=== PATIENT | female | born 1945 ===

== ENCOUNTER 2021-05-25 18:31 | Inpatient (IN) ==
[2021-05-25] MEDS ORDERED: tiZANidine 4 MG TABLET PO PRN (23:21)
[2021-05-25] MEDS ORDERED: Ondansetron ODT 4 MG TAB.RAPDIS SL PRN (23:22)
[2021-05-25] MEDS ORDERED: Acetaminophen 325 MG TABLET PO PRN (23:22)
[2021-05-26] MEDS ORDERED: *HR* Enoxaparin 40 MG/0.4 ML SYRINGE SQ SCH (07:00)
[2021-05-27] MEDS: *HR* OxyCODONE/APAP 5/325 TABLET PO PRN ×2 (01:09→22:00)
[2021-05-27] MEDS: *HR* Enoxaparin 40 MG/0.4 ML SYRINGE SQ SCH (06:44)
[2021-05-28] MEDS: *HR* Enoxaparin 40 MG/0.4 ML SYRINGE SQ SCH (05:00)
[2021-05-28 06:15] LABS: Hematocrit 28.4 % (35.3-44.9); Hemoglobin 9.1 g/dL (11.5-15.4); Mean Corpuscular Hemoglobin 30.6 pg (28.0-33.3); Mean Corpuscular Volume 95.6 fL (83.0-100.0); Mean Platelet Volume 9.7 fL (9.4-12.4); Platelet Count 366 K/mcL (140-400); Red Blood Count 2.97 M/mcL (3.82-4.97); Red Cell Distribution Width 13.7 % (11.5-14.5); White Blood Count 6.3 K/mcL (4.3-11.1)
[2021-05-28 07:00] LABS: BUN/Creatinine Ratio 8 (6-26); Blood Urea Nitrogen 6 mg/dL (8-23); Calcium 7.9 mg/dL (8.6-10.3); Carbon Dioxide 20 mEq/L (23-29); Chloride 103 mEq/L (98-107); Glucose 89 mg/dL (70-105); Osmolality,Calculated 277 (280-300); Potassium 3.9 mEq/L (3.5-5.1); Sodium 135 mEq/L (136-145); eGFR For African Americans > 60 (> 60); eGFR For Non-African Americans > 60 (> 60)
[2021-05-28] MEDS ORDERED: 0.9 % Sodium Chloride 500 ML IV ONE (12:32)
[2021-05-28] MEDS ORDERED: 0.9 % Sodium Chloride 1,000 ML IV SCH (12:45)
[2021-05-28] MEDS: Carbamide Peroxide 150 DROP/15 ML BOTTLE LEFT EAR SCH (21:55)
[2021-05-28] MEDS: Carbamide Peroxide 150 DROP/15 ML BOTTLE RIGHT EAR SCH (21:55)
[2021-05-29 05:32] LABS: Hematocrit 29.3 % (35.3-44.9); Hemoglobin 9.5 g/dL (11.5-15.4); Mean Corpuscular HGB Conc 32.4 g/dL (31.6-35.5); Mean Corpuscular Volume 92.4 fL (83.0-100.0); Mean Platelet Volume 8.9 fL (9.4-12.4); Platelet Count 311 K/mcL (140-400); Red Blood Count 3.17 M/mcL (3.82-4.97); Red Cell Distribution Width 13.9 % (11.5-14.5); White Blood Count 5.6 K/mcL (4.3-11.1)
[2021-05-29 05:47] LABS: Alanine Aminotransferase 12 Units/L (7-52); Albumin 2.9 g/dL (3.5-5.7); Albumin/Globulin Ratio 1.4 (1.1-2.2); Alkaline Phosphatase 59 Units/L (34-104); Aspartate Amino Transferase 17 Units/L (13-39); BUN/Creatinine Ratio 9 (6-26); Bilirubin,Total 0.7 mg/dL (0.3-1.0); Blood Urea Nitrogen 6 mg/dL (8-23); Carbon Dioxide 25 mEq/L (23-29); Chloride 105 mEq/L (98-107); Globulin 2.1 g/dL (2.4-3.5); Glucose 100 mg/dL (70-105); Magnesium 2.3 mg/dL (1.6-2.6); Osmolality,Calculated 284 (280-300); Potassium 3.7 mEq/L (3.5-5.1); Sodium 138 mEq/L (136-145); eGFR For African Americans > 60 (> 60); eGFR For Non-African Americans > 60 (> 60)
[2021-05-29] MEDS: *HR* Enoxaparin 40 MG/0.4 ML SYRINGE SQ SCH (06:05)
[2021-05-29] MEDS: Loratadine/Pseudophed (12 HR) 1 EACH TABLET PO SCH ×2 (08:35→20:08)
[2021-05-29] MEDS: levoFLOXacin 500 MG TABLET PO SCH (08:35)
[2021-05-29] MEDS: Carbamide Peroxide 150 DROP/15 ML BOTTLE RIGHT EAR SCH ×2 (08:36→19:59)
[2021-05-29] MEDS: Carbamide Peroxide 150 DROP/15 ML BOTTLE LEFT EAR SCH ×2 (08:36→19:59)
[2021-05-29] MEDS: *HR* OxyCODONE/APAP 5/325 TABLET PO PRN ×2 (11:22→19:59)
[2021-05-30] MEDS: *HR* OxyCODONE/APAP 5/325 TABLET PO PRN (05:16)
[2021-05-30] MEDS: *HR* Enoxaparin 40 MG/0.4 ML SYRINGE SQ SCH (05:16)
[2021-05-30 07:58] VITALS: BP 108/63; PULSE 63; RESP 17; TEMP 97.7; O2SAT 92
[2021-05-30] MEDS: levoFLOXacin 500 MG TABLET PO SCH (08:53)
[2021-05-30] MEDS: Carbamide Peroxide 150 DROP/15 ML BOTTLE LEFT EAR SCH (08:54)
[2021-05-30] MEDS: Carbamide Peroxide 150 DROP/15 ML BOTTLE RIGHT EAR SCH (08:54)
[2021-05-30] MEDS: Loratadine/Pseudophed (12 HR) 1 EACH TABLET PO SCH (08:56)
== END 2021-05-30 14:33 | disposition home health service (06) | DRG 535 ==
LOC: INPGRE 05-26 20:03
PROVIDERS: ADMIT Family Medicine; ATTEND Family Medicine